=== PATIENT | female | born 1945 | race Caucasian/White ===

== ENCOUNTER 2023-06-24 08:00 | Outpatient (RCR) | payer MEDICARE | END 2023-07-22 | LOC: OT | DX: R27.0 Ataxia, unspecified (principal) ==

== ENCOUNTER 2023-06-24 08:00 | Outpatient (RCR) | payer MEDICARE | END 2023-07-22 | disposition home or self-care (01) | LOC: PT | DX: I63.9 Cerebral infarction, unspecified (principal) ==

== ENCOUNTER 2024-04-13 17:56 | Emergency (ER) | payer MEDICARE, MEDICAID ==
[2024-04-13 18:22] LABS: BASO # 0.03 K/mm3 (0.02-0.10); EOS # 0.15 K/mm3 (0.04-0.40); EOS % 2.4 % (1.0-5.0); HEMATOCRIT 36.6 % (37.0-47.0); HEMOGLOBIN 11.6 g/dL (12.5-16.0); LYMPH# 2.04 K/mm3 (1.50-4.00); MEAN CELL VOLUME 101 fl (78-100); MEAN CORPUSCULAR HEMOGLOBIN 32 pg (27-31); MEAN CORPUSCULAR HGB CONC 32 g/dL (33-37); MEAN PLATELET VOLUME 10.4 fl (7.4-10.4); MONO # 0.58 K/mm3 (0.20-0.80); NEU # 3.55 K/mm3 (1.40-6.50); PLATELET COUNT 218 K/mm3 (130-400); RED BLOOD COUNT 3.63 M/mm3 (4.10-5.30); WHITE BLOOD COUNT 6.4 K/mm3 (4.8-10.8)
[2024-04-13 18:23] LABS: ALBUMIN 3.7 g/dL (3.4-4.8)
[2024-04-13 18:24] LABS: SODIUM 138 mmol/L (136-145)
[2024-04-13 18:25] LABS: CALCIUM 9.1 mg/dL (8.3-10.5)
[2024-04-13 18:26] LABS: GLUCOSE 96 mg/dL (65-105); TOTAL PROTEIN 7.3 g/dL (6.2-8.1)
[2024-04-13 18:27] LABS: CARBON DIOXIDE 20 mmol/L (23-31)
[2024-04-13 18:28] LABS: TOTAL BILIRUBIN 0.3 mg/dL (0.2-1.2)
[2024-04-13 18:31] LABS: AST-SGOT 16 U/L (5-34)
[2024-04-13 18:32] LABS: ALT/SGPT 9 U/L (0-55)
[2024-04-13 18:33] LABS: LIPASE 16 U/L (8-78)
[2024-04-13 18:39] LABS: TROPONIN-I < 0.030 ng/mL (0.00-0.033)
[2024-04-13 19:40] VITALS: BP 140/75
[2024-04-13] MEDS ORDERED: ONDANSETRON HYDR4 MG PO (20:55)
== END 2024-04-13 20:50 | disposition home or self-care (01) ==
LOC: ED 17:56
PROVIDERS: Family Medicine
DX: R42 Dizziness and giddiness (principal); R11.0 Nausea; R53.81 Other malaise; Z86.73 Personal history of transient ischemic attack (TIA), and cerebral infarction without residual deficits; Z85.038 Personal history of other malignant neoplasm of large intestine